=== PATIENT | male | born 1990 | race African-American/Black ===

== ENCOUNTER 2017-04-15 07:25 | Observation (INO) | payer SELFPAY ==
[~2017-04-15] VITALS: Ht 193 cm; Wt 106.8 kg
[2017-04-15] VITALS (7 sets, daily range): BP systolic 110–149; BP diastolic 55–90; PULSE 50–91; TEMP 97–97.8
[2017-04-15 07:42] LABS: BASO # 0.1 (0.0-0.2); BASO % 0.3 % (0.0-2.0); EOS % 0.2 % (0-4.0); HEMOGLOBIN 15.4 g/dl (13.5-18.0); LYMPH # 1.9 (1.2-3.4); LYMPH % 11.1 % (20.0-51.0); MEAN CELL VOLUME 84 fl (80.0-100.0); MEAN CORPUSCULAR HEMOGLOBIN 28 pg (27.0-31.0); MEAN CORPUSCULAR HGB CONC 34 g/dl (33.0-37.0); MEAN PLATELET VOLUME 11.3 fl (7.4-10.4); MONO # 1.4 (0.1-0.6); MONO % 7.8 % (1.7-9.3); PLATELET COUNT 230 K/mm3 (130-400); RED BLOOD COUNT 5.49 M/mm3 (4.20-5.60); REDCELL DISTRIBUTION WIDTH-CV 13.4 % (11.5-14.5); WHITE BLOOD COUNT 17.5 K/mm3 (4.8-10.8)
[2017-04-15 07:55] LABS: ADJUSTED CALCIUM 8.8 mg/dL (8.4-10.2); C-REACTIVE PROTEIN 1.1 mg/dL (0.0-0.9); CALCIUM 9.6 mg/dL (8.4-10.2); CREATININE, serum 0.92 mg/dL (0.66-1.25); POTASSIUM 3.8 mmol/L (3.4-5.0); TOTAL PROTEIN 8.4 gm/dL (6.4-8.2)
[2017-04-15 09:01] LABS: PH 7 (5-8); SQUAMOUS EPITHELIAL None Seen /hpf; URINE APPEARANCE Hazy; URINE BACTERIA Rare /hpf; URINE BILIRUBIN Negative (NEGATIVE); URINE BLOOD Negative (NEGATIVE); URINE COLOR Yellow; URINE GLUCOSE Negative (NEGATIVE); URINE KETONE Trace (NEGATIVE); URINE UROBILINOGEN Negative (NEGATIVE)
[2017-04-15] MEDS ORDERED: COLACE 100100 MG/CAP PO (11:53)
[2017-04-15] MEDS ORDERED: NORCO 325 MG-51 TAB PO (11:53)
[2017-04-15] MEDS ORDERED: MOTRIN 600600 MG/TAB PO (11:54)
== END 2017-04-15 14:16 | disposition home or self-care (01) ==
LOC: COL.ER 07:25 → MEDICAL 09:52
PROVIDERS: Emergency Medicine
DX: K35.80 Unspecified acute appendicitis (principal); F17.210 Nicotine dependence, cigarettes, uncomplicated; R06.83 Snoring
CPT/HCPCS: OP; J0330; J1100; J1885; J2405; J2543; J2550; J2704; J2710; J2765; J3010; J7030; J7050; J7120; Q9967